=== PATIENT | male | born 1960 | race Caucasian/White ===

== ENCOUNTER → 2017-05-16 | Day surgery (SDC) | payer OTHER ==
[~2017-05-16] VITALS: Ht 188 cm; Wt 103.0 kg
[~2017-05-16] MED LIST: 0.9% Sodium Chloride 1,000 ML IV ONE; ALLO300T2 PO; AMOX500C2 PO; FLUT9.9S NS; NAPR500T PO; SIMV40TA2 PO; Sodium Chloride LOK Flush 10 mL Syringe IV PRN; fentaNYL-PF 50 mCg/mL 2 mL Inj IVPUSH PRN
[2017-05-16 09:06] VITALS: BP 138/86; PULSE 69; RESP 16; O2SAT 97
[2017-05-16 09:42] VITALS: BP 115/69; PULSE 56; RESP 16; O2SAT 98
[2017-05-16 09:52] VITALS: BP 105/70; PULSE 74; RESP 16; O2SAT 98
[2017-05-16 10:02] VITALS: BP 123/81; PULSE 58; RESP 16; O2SAT 96
--- NOTE | 2017-05-16 12:54 | ENDO ---
[address] [id number] ENDOSCOPY PROCEDURE PATIENT: JORY GROVER : 1960 MR#: [id number] ADMIT: 05/16/2017 JOB ID: [id number] CORRECTED REPORT: DATE: 05/16/2017 TITLE OF OPERATION: Colonoscopy. PREOPERATIVE DIAGNOSIS(ES): Colorectal cancer screening. POSTOPERATIVE DIAGNOSIS(ES): Normal colonoscopy. ANESTHESIA: Fentanyl 150 mcg and Versed 7 mg IV administered. COMPLICATIONS: None. BLOOD LOSS: Minimal. DESCRIPTION OF PROCEDURE: After the risks and benefits were explained to the patient, informed consent was obtained. After anesthesia was administered, the colonoscope was inserted from the rectum to the cecum and the mucosa carefully examined. Prep of the patient was fair. After the procedure was done, the scope was withdrawn and the procedure terminated. FINDINGS: Upon inspection of the anus no masses, hemorrhoids, ulcers, or fissures were seen. Throughout the entire examination no polyps, masses, or lesions. Retroflexion was normal. IMPRESSION: Normal colonoscopy. RECOMMENDATIONS: Repeat colonoscopy in 10 years for colorectal cancer screening. Corrected by CEASAR 05/22/17 at 9:27am DOS.
== END | disposition home or self-care (01) ==
LOC: END 01:14
PROVIDERS: ATTEND Internal Medicine Gastroenterology
DX: Z11.1 Encounter for screening for respiratory tuberculosis (principal); Z83.71 Family history of colonic polyps; G56.22 Lesion of ulnar nerve, left upper limb
CPT/HCPCS: G0105; G0500; J2250; J3010; J7030